=== PATIENT | female | born 1955 | race Caucasian/White ===

== ENCOUNTER 2025-02-06 14:59 | Emergency (ER) | payer MEDICARE, MEDICAID ==
[~2025-02-06] VITALS: Ht 167.6 cm; Wt 100.0 kg
[~2025-02-06 14:59] MED LIST: HYDR-3965 PO; INDO50CA96 PO; LORA1TAB PO
[2025-02-06 15:24] VITALS: TEMP 98
--- NOTE | 2025-02-06 15:54 | RADIOLOGY REPORT ---
EXAM: DI ANKLE, COMPLETE(3VW MIN) INDICATION: TRAUMA TECHNIQUE: 3 views of the left ankle COMPARISON: None FINDINGS/IMPRESSION: Transversely oriented, complete, intra-articular fracture of the distal fibula. No widening of the di stal tibiofibular interval. Large anterior tibiotalar joint effusion. Small plantar calcaneal spur.
[2025-02-06 16:58] VITALS: BP 139/89
--- NOTE | 2025-02-06 17:01 | Physician Documentation ---
History of Present Illness ~ Chief Complaint: Ankle pain Stated Complaint: ANKLE INJURY Time Seen by MD: 15:31 OK to notify your PCP?: Yes Source: patient Mode of Arrival: POV Exam Limitations: no limitations HPI 70 y/o female with left ankle pain after she rolled her ankle prior to arrival. Pain is lateral ankle. No pre-arrival treatment. Unable to bear weight on ankle due to pain. Did not hit head. No other injuries. Tetanus witin 5 years: Yes Medication Reconciliation Allergies: Coded Allergies: [id number]-BvH Reductase Inhibitor (Unverified Allergy, Unknown, 02/06/25) codeine (Verified Allergy, Unknown, 02/06/25) penicillin (Verified Allergy, Unknown, 02/06/25) Uncoded Allergies: PENICILLEN, CODEINE (Allergy, Unknown, 12/23/14) Scheduled Hydrocodone Bit/Acetaminophen 5/325 MG ([place] 5/325 MG), 1 TAB PO Q4H Indomethacin (Indomethacin), 1 CAP PO TID Lorazepam* (Ativan*), 1 MG PO BID, (Reported) Past Medical History Past Medical History: No Pertinent History, High Cholesterol, Asthma, Diabetes, Chronic Pain, Chronic Back Pain, Extremity Fracture, Gout Past Surgical History: noncontributory Drug Use: none Lives In: Home Review of Systems All Other Systems at this time: Reviewed and Negative Physical Exam Vital Signs: Temperature: 98.0, Source: Temporal, Heart Rate: 96, Respiratory Rate: 20, BP: 150/81, Pulse Oximetry: 100, Weight: 100.000 Physical Exam General Appearance: Alert, WD/WN. NAD. HEENT: NCAT, PERRL, EOMI. Neck: Supple, trachea midline. Cardiovascular: RRR. No m/r/g. Lungs: CTAB. Breathing unlabored Extremities: TTP OVER LATERAL LEFT ANKLE, NTTP AT ACHILLES OR MEDIAL ANKLE. NTTP AT KNEE OR FOOT. Neurological: Alert and oriented x4, UNABLE TO BEAR WEIGHT ON LEFT FOOT DUE TO PAIN. Psychiatric: Affect congruent with mood. Progress Results/Orders Results/Orders Vital Signs 02/06/25 15:24 Temp 98.0 Pulse 96 Resp 20 B/P (MAP) 150/81 Pulse Ox 100 Medical Decision Making Ankle Diff Dx:Considerations: Include: Abrasion, Arthritis, Contusion, DJD, Fracture-metatarsal, Fracture-fibula, Fracture-tarsal, Fracture-tibia, Gout, Hematoma, Laceration, Malunion, Neurovascular injury, Nonunion, Open fracture, Osteomyelitis, Rheumatoid arthritis, Sprain, Septic, Ulcer Departure Time of Disposition: 16:59 Disposition: 01 HOME / SELF CARE / HOMELESS Impression: Primary Impression: Fibula fracture Qualified Codes: S82.425A - Nondisplaced transverse fracture of shaft of left fibula, initial encounter for closed fracture Additional Impression: Ankle pain, left Qualified Codes: M25.572 - Pain in left ankle and joints of left foot Condition: Stable Discharge Instructions: Ankle Pain Additional Instructions: F/U WITH PCP FOR MONITORING FOR HEALING. GRADUALLY ADVANCE ACTIVITY TOLERATED Referrals: NO PRIMARY CARE PROVIDER (PCP) Education Educated: Patient Educated regarding: diagnosis, treatment, need for follow up Signature Scribe Signature: X Attestation: BENJIE SANDERSON Feb 06, 2025 17:01
[2025-02-06] MEDS: HYDROcodone/acetaminophen 10/325mg tab PO ONE (17:47)
[2025-02-06] MEDS: ketorolac trometh 15mg/ml vial 15 MG/ML ML IM ONE (17:47)
[2025-02-06 18:04] VITALS: PULSE 68; RESP 19; O2SAT 98
== END 2025-02-06 18:06 | disposition home or self-care (01) ==
LOC: ER 14:59
DX: S82.492A Other fracture of shaft of left fibula, initial encounter for closed fracture (principal); Z88.5 Allergy status to narcotic agent; Z88.0 Allergy status to penicillin; Z88.8 Allergy status to other drugs, medicaments and biological substances; X50.1XXA Overexertion from prolonged static or awkward postures, initial encounter; Y93.9 Activity, unspecified; Y92.89 Other specified places as the place of occurrence of the external cause; Y99.8 Other external cause status
CPT/HCPCS: 73610; 96372; 99284; J1885; L4360